=== PATIENT | female | born 1980 | race Caucasian/White ===

== ENCOUNTER → 2020-07-25 | Outpatient (CLI) | payer OTHER ==
--- NOTE | 2020-07-25 14:52 | RAD ---
3 views of lumbar spine without comparison for disability determination. FINDINGS: There is straightening of the normal lumbar lordosis, with mild narrowing of the L3-4 and L4-5 intervertebral disc spaces. More advanced narrowing is seen as L5-S1, with vacuum phenomenon. There is some facet arthrosis at L4-5 with more advanced facet arthrosis at L5-S1 as well. No fracture or acute osseous abnormality. IMPRESSION: 1. No acute osseous or alignment abnormality of lumbar spine. 2. Multilevel degenerative changes of the lower lumbar spine as described. Electronically signed by: Marcel Arthur MD (07/25/2020 2:49 PM) [id number]
== END | disposition home or self-care (01) ==
LOC: DXRAD 11:05
PROVIDERS: ATTEND Anesthesiology Pain Medicine
DX: M47.817 Spondylosis without myelopathy or radiculopathy, lumbosacral region (principal); M48.07 Spinal stenosis, lumbosacral region; M51.37 Other intervertebral disc degeneration, lumbosacral region; M40.47 Postural lordosis, lumbosacral region
CPT/HCPCS: 72100